=== PATIENT | female | born 1970 ===

== ENCOUNTER 2017-11-06 16:40 | Emergency (ER) | payer OTHER ==
[2017-11-06 16:45] VITALS: BMI 25.4
[2017-11-06 16:49] VITALS: BP 115/82; PULSE 98; RESP 18; TEMP 98.6; O2SAT 99
--- NOTE | 2017-11-06 17:05 | C.PDOC ---
History Of Present Illness 47 year old female presents to the ED c/o lower back pain radiating down her legs that started on Thursday. Patient reports she lifted something heavy at work and after the back pain worsened. 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 Patient denies recent injury, fall, trauma, weakness, numbness, saddle anesthesia, bowel/urinary incontinence. Time Seen by Provider: 11/06/17 16:47 Chief Complaint (Nursing): Back Pain History Per: Patient History/Exam Limitations: no limitations Onset/Duration Of Symptoms: Days Current Symptoms Are (Timing): Still Present Quality Of Discomfort: "Pain" Previous Symptoms: Back Pain Associated Symptoms: None Exacerbating Factor(s): Movement Recent travel outside of the [place]: No Additional History Per: Patient Past Medical History Reviewed: Historical Data, Nursing Documentation, Vital Signs Vital Signs: Last Vital Signs Temp 98.6 F 11/06/17 16:44 Pulse 98 H 11/06/17 16:44 Resp 18 11/06/17 16:44 BP 115/82 11/06/17 16:44 Pulse Ox 99 11/06/17 17:07 - Medical History PMH: Anxiety, Depression Denies: Diabetes, Hepatitis, HIV, HTN, Seizures, Sexually Transmitted Disease Surgical History: No Surg Hx Family History: States: Unknown Family Hx - Social History Hx Tobacco Use: No Hx Alcohol Use: No Hx Substance Use: No - Immunization History Hx Tetanus Toxoid Vaccination: No Hx Influenza Vaccination: Yes Hx Pneumococcal Vaccination: No Review Of Systems Except As Marked, All Systems Reviewed And Found Negative. Musculoskeletal: Positive for: Back Pain, Leg Pain Physical Exam - Physical Exam Appears: Non-toxic, No Acute Distress Skin: Normal Color, Warm, Dry Head: Atraumatic, Normacephalic Eye(s): bilateral: Normal Inspection Gastrointestinal/Abdominal: Soft, No Tenderness, No Guarding, No Rebound Back: Paraspinal Tenderness (lumbar) Extremity: Normal ROM, No Tenderness, Capillary Refill (< 2 seconds), No Swelling Pulses: Left Dorsalis Pedis: Normal, Right Dorsalis Pedis: Normal Neurological/Psych: Oriented x3, Normal Speech, Normal Motor, Normal Sensation, Normal Reflexes Gait: Steady ED Course And Treatment O2 Sat by Pulse Oximetry: 99 (ON RA) Pulse Ox Interpretation: Normal Medical Decision Making Medical Decision Making: Plan: * Flexeril 10 mg PO * Toradol 30 mg IM * * exacerbation of chronic back pain. neuro intact, steady gait. no saddle anesthesia. Disposition - Disposition Referrals: Dexter Peguero MD [Non-Staff] - Disposition: HOME/ ROUTINE Disposition Time: 06:00 Condition: STABLE Additional Instructions: please follow up with your doctor. return to er with worsening symptoms or concerns. Prescriptions: Cyclobenzaprine [Cyclobenzaprine HCl] 10 mg PO DAILY PRN #10 tab PRN Reason: Muscle Spasm Naproxen [Naprosyn] 500 mg PO BID PRN #14 tablet PRN Reason: Pain, Mild (1-3) Instructions: Low Back Pain in Adults Forms: [employer] (Croatian) - Clinical Impression Clinical Impression: Low back pain - Scribe Statement The provider has reviewed the documentation as recorded by the Scribe Damon Gomez All medical record entries made by the Scribe were at my direction and personally dictated by me. I have reviewed the chart and agree that the record accurately reflects my personal performance of the history, physical exam, medical decision making, and the department course for this patient. I have also personally directed, reviewed, and agree with the discharge instructions and disposition.
== END 2017-11-06 17:34 | disposition home or self-care (01) ==
LOC: C.ER 16:40
DX: M54.5 Low back pain (principal)
CPT/HCPCS: 96372; 99284; J1885

== ENCOUNTER 2018-10-14 23:11 | Emergency (ER) | payer OTHER ==
[2018-10-14 23:11] VITALS: BMI 26.5
[2018-10-15] MEDS ORDERED: Sodium Chloride 0.9% 1,000 ML ONE (00:24)
[2018-10-15] MEDS ORDERED: Sodium Chloride 0.9% 1,000 ML IV ONE (00:26)
--- NOTE | 2018-10-15 00:40 | C.PDOC ---
History Of Present Illness 48 year old female presents with several day Hx of abdominal pain. Patient was seen at [facility] yesterday for her symptoms, had labs, CT abd/pel, pelvic US, diagnosed with colitis, and discharged with Rx for bentyl, she did not fill Rx and returns to with worsening epigastric pain with vomiting and diarrhea. Patient states she does not feel well. Denies fever or past abdominal surgery. Time Seen by Provider: 10/14/18 23:26 Chief Complaint (Nursing): Abdominal Pain History Per: Patient History/Exam Limitations: no limitations Onset/Duration Of Symptoms: Days Current Symptoms Are (Timing): Still Present Location Of Pain/Discomfort: Epigastric Radiation Of Pain To:: None Quality Of Discomfort: Unable To Describe Associated Symptoms: Vomiting, Diarrhea. denies: Fever Exacerbating Factors: None Alleviating Factors: None Recent travel outside of the [place]: No Past Medical History Reviewed: Historical Data, Nursing Documentation, Vital Signs Vital Signs: Last Vital Signs Temp 100.6 F H 10/14/18 23:30 Pulse 88 10/14/18 23:30 Resp 22 10/14/18 23:30 BP 94/61 L 10/14/18 23:30 Pulse Ox 100 10/14/18 23:30 - Medical History PMH: Anxiety, Depression Denies: Diabetes, Hepatitis, HIV, HTN, Seizures, Sexually Transmitted Disease Family History: States: Unknown Family Hx - Social History Hx Tobacco Use: No Hx Alcohol Use: Yes Hx Substance Use: No - Immunization History Hx Tetanus Toxoid Vaccination: No Hx Influenza Vaccination: No Hx Pneumococcal Vaccination: No Review Of Systems Constitutional: Negative for: Fever, Chills Cardiovascular: Negative for: Chest Pain, Palpitations Respiratory: Negative for: Cough, Shortness of Breath Gastrointestinal: Positive for: Nausea, Abdominal Pain, Diarrhea Genitourinary: Negative for: Dysuria, Hematuria Musculoskeletal: Negative for: Back Pain Skin: Negative for: Rash Neurological: Negative for: Weakness, Numbness Physical Exam - Physical Exam Appears: Non-toxic, Other (Mild painful distress) Skin: Normal Color, Warm Head: Atraumatic, Normacephalic Eye(s): bilateral: Normal Inspection Oral Mucosa: Moist Chest: Symmetrical, No Tenderness Cardiovascular: Rhythm Regular Respiratory: Normal Breath Sounds, No Rales, No Rhonchi, No Wheezing Gastrointestinal/Abdominal: Soft, Tenderness (Mainly epigastric, minimal throughout), No Guarding, No Rebound Back: No CVA Tenderness Neurological/Psych: Oriented x3, Normal Speech ED Course And Treatment O2 Sat by Pulse Oximetry: 100 Medical Decision Making Medical Decision Making: Plan; * Toradol * Zofran * IV fluids Labs and imaging results from visit to [facility] yesterday reviewed. Patient medicated. On re-eval patient states that she feels better, asking to go home. Rx written for zofran. Advised also filling Rx for meds received during yesterday's visit. Patient to follow up with PMD. Return to the ED for any new or worsening symptoms. Disposition - Disposition Disposition: HOME/ ROUTINE Disposition Time: 01:48 Condition: STABLE Additional Instructions: SANTO CISNEROS, thank you for letting us take care of you today. Your provider was Valorie Nick MD and you were treated for ABD PAIN. The emergency medical care you received today was directed at your acute symptoms. If you were prescribed any medication, please fill it and take as directed. It may take several days for your symptoms to resolve. Return to the Emergency Department if your symptoms worsen, do not improve, or if you have any other problems. Please contact your doctor or call one of the physicians/clinics you have been referred to that are listed on the Patient Visit Information form that is included in your discharge packet. Bring any paperwork you were given at discharge with you along with any medications you are taking to your follow up visit. Our treatment cannot replace ongoing medical care by a primary care provider outside of the emergency department. Thank you for allowing the [facility] team to be part of your care today. If you had an X-Ray or CT scan: A Radiologist will review the ED reading if any change in treatment is needed we will contact you. If you had a blood, urine, or wound culture: It will take several days for the results, if any change in treatment is needed we will contact you. If you had an STI test: It will take 48 hours for the results. Please call after 1 week if you have not heard back. Prescriptions: Ondansetron ODT [Zofran ODT] 4 mg PO TID PRN #9 odt PRN Reason: Nausea/Vomiting Instructions: Acute Abdomen (Belly Pain), Adult (DC) Forms: [employer] (Togolese) Print Language: ARABIC - Clinical Impression Clinical Impression: Abdominal pain, Vomiting - Scribe Statement The provider has reviewed the documentation as recorded by the Scribtalia Ellison All medical record entries made by the Maiibe were at my direction and personally dictated by me. I have reviewed the chart and agree that the record accurately reflects my personal performance of the history, physical exam, medical decision making, and the department course for this patient. I have also personally directed, reviewed, and agree with the discharge instructions and disposition.
[2018-10-15 01:51] VITALS: BP 92/59; PULSE 74; RESP 16; TEMP 98.5
[2018-10-15 06:39] VITALS: O2SAT 100
== END 2018-10-15 01:51 | disposition home or self-care (01) ==
LOC: C.ER 23:11
DX: R10.9 Unspecified abdominal pain (principal); R11.10 Vomiting, unspecified
CPT/HCPCS: 82948; 96361; 96374; 96375; 99284; J1885; J2405; J7030